=== PATIENT | male | born 1945 | race Caucasian/White ===

== ENCOUNTER 2016-11-07 07:47 | Emergency (ER) | payer BC, MEDICARE ==
[~2016-11-07] VITALS: Ht 152.4 cm; Wt 91.0 kg
[~2016-11-07 07:47] MED LIST: ASPI-664 PO; LEVO750T25 PO; LOSA25TA2 PO; METO-429 PO; NICO1PAT6 TRANSDERM; SIMV40TA2 PO
[2016-11-07 07:51] VITALS: Ht 152.4 cm; Wt 91.0 kg
[2016-11-07] MEDS ORDERED: KETOROLAC 30 MG INJ IV STA (08:10)
[2016-11-07] MEDS ORDERED: KETOROLAC 30 MG INJ IM STA (08:18)
--- NOTE | 2016-11-07 08:18 | ERD ---
ER Documentation Chief Complaint Date/Time DATE: 11/07/16 TIME: 08:12 Chief Complaint SORE THROAAT X 1 WEEK HPI 70-year-old male with a history of hypertension and hyperlipidemia presents to the emergency department with a history of neck stiffness and pain which radiates to his right upper back and right subscapular area. Patient states the pain began after waking up 2 days ago. He states that since that time he has been experiencing an intermittent 6 out of 10 type pain localized to the right neck and right upper back region. Patient denies any recent trauma but states that he has been having difficulty sleeping. Patient denies cough, fever , chest pain, shortness of breath, or recent illness. He also denies any recent travel, history of cancer, calf swelling or erythema. Patient states at this time he has a limited range of motion of his neck. ROS All systems reviewed and are negative except as per history of present illness. Medications Home Meds Active Scripts Naproxen* (Naprosyn*) 500 Mg Tablet, 500 MG PO BID for 10 Days, TAB Prov:CLIF DUFFY PA-C 11/07/16 Cyclobenzaprine Hcl* (Cyclobenzaprine Hcl*) 10 Mg Tablet, 10 MG PO Q8 Y for PAIN , #20 TAB Prov:CLIF DUFFY PA-C 11/07/16 Hydrocodone/Acetaminophen ([place] 10-325 Tablet) 1 Each Tablet, 1 EACH PO Q6, # 20 TAB Prov:CLIF DUFFY PA-C 11/07/16 Nicotine* (Nicotine* Patch) 21 mg/day Patch, 1 PATCH TRANSDERM DAILY for 30 Days , 3 Refills Prov:HORACIO MELGAR 09/16/16 Metoprolol Tartrate* (Lopressor*) 50 Mg Tab, 50 MG PO BID for 30 Days, TAB 3 Refills Prov:HORACIO MELGAR 09/16/16 Losartan Potassium* (Cozaar*) 25 Mg Tablet, 25 MG PO DAILY for 30 Days, TAB 3 Refills Prov:HORACIO MELGAR 09/16/16 Levofloxacin* (Levaquin*) 750 Mg Tablet, 750 MG PO DAILY for 4 Days, TAB Prov:HORACIO MELGAR 09/16/16 Reported Medications Simvastatin* (Zocor*) 40 Mg Tablet, 40 MG PO QHS, #30 TAB 09/11/16 Aspirin (Low Dose Aspirin) 81 Mg Tablet.dr, 81 MG PO DAILY, #30 TAB 09/11/16 Allergies Allergies: Coded Allergies: No Known Allergy (Unverified , 09/10/16) PMhx/Soc History of Surgery: No Anesthesia Reaction: No Hx Neurological Disorder: No Hx Respiratory Disorders: No Hx Cardiac Disorders: Yes (Stents 2 years ago) Hx Psychiatric Problems: No Hx Miscellaneous Medical Probl: No Hx Alcohol Use: No Hx Substance Use: No Hx Tobacco Use: Yes (1 PACK/DAY ) Smoking Status: Current every day smoker Physical Exam Vitals Vital Signs Date Time Temp Pulse Resp B/P Pulse Ox O2 Delivery O2 Flow Rate FiO2 11/07/16 07:51 98.0 74 18 150/58 98 Physical Exam Const: Well-developed, nontoxic-appearing, well-hydrated, in no acute distress Head: Atraumatic Eyes: Normal Conjunctiva ENT: Normal External Ears, Nose and Mouth. Oropharynx clear, non- erythematous, no sign of tonsillar swelling or exudate Neck: Limited range of motion on rotation of neck side to side. Limited range of motion on flexion and extension of neck. Tense cervical paraspinous muscles palpated along the right side. Mild tenderness to palpation near right subscapular region. No meningismus. Resp: Clear to auscultation bilaterally, no wheezes, rhonchi, rales Cardio: Regular rate and rhythm, no murmurs Abd: Soft, non tender, non distended. Normal bowel sounds Skin: No petechiae or rashes Back: No midline or flank tenderness Ext: No cyanosis, or edema. No tenderness to palpation of the right sided shoulder joint. Full range of motion Neur: Awake and alert Psych: Normal Mood and Affect Results 24 hrs Current Medications Medications (Trade) Dose Ordered Sig/Kadi Route PRN Reason Start Time Stop Time Status Last Admin Dose Admin Ketorolac Tromethamine (Toradol) 30 mg ONCE STAT IV 11/07/16 08:10 11/07/16 08:19 DC Ketorolac Tromethamine (Toradol) 30 mg ONCE STAT IM 11/07/16 08:18 11/07/16 08:19 DC 11/07/16 08:32 Procedures/MDM PROCEDURE: Chest radiograph series. CLINICAL INDICATION: Chest pain. Subscapular pain. TECHNIQUE: WILBUR and lateral chest x-ray. COMPARISON: Chest radiograph 09/14/2016 FINDINGS: Heart size is within normal limits. Atherosclerotic calcifications are present. The lungs and costophrenic angles are clear. There are mild degenerative changes of the thoracic spine. The bones are otherwise intact. IMPRESSION: 1. No evidence of acute cardiopulmonary disease. 2. Atherosclerotic vascular disease. RPTAT: KK .Rajesh Schuler MD, MD Date Time Electronically viewed and signed by .Rajesh Schuler MD, MD on 2016 08:46 .B/ CC: CLIF DUFFY PA-C Chest X-ray 1V Interpreted by me: Soft Tissue: No acute abnormalities, no PNA, PNX Bones: No acute abnormalities , degenerative changes of spine Mediastinum/Cardiac Silhouette/Lungs: Arthorsclerotic vascular disease, EKG: Rate/Rhythm: Normal Sinus Rhythm. possible left anterior fascicuar block QRS, ST, T-waves: No changes consistent w/ acute ischemia Impression: No evidence of ischemia or arrhythmia Patient received IM Toradol The patient's clinical presentation is very consistent with an acute viral syndrome. The patient does not exhibit any clinical signs or symptoms concerning for serious bacterial infection or systemic illness. Based on history and clinical exam findings the patient does not appear to have evidence of pneumonia, strep pharyngitis, urinary tract infection, bacteremia, sepsis, or meningitis. The patient's back pain is unlikely related to serious etiology. The patient exhibits no clinical signs or symptoms and has no history or risk factors to suggest cauda equina, cord compression, epidural abscess, epidural hematoma, acute aortic aneurysm or dissection. For these reasons I do not believe it is necessary to obtain laboratory testing or diagnostic imaging. I believe it would be appropriate for symptom control, and close outpatient primary care follow-up. Based on patient's history of present illness and physical examination the decision was made to discharge. The patient was re-evaluated after ED treatment and stabilizing measures, and symptoms have improved. There is no evidence of life threatening injuries or illnesses at this time. On re-examination, patient resting in no distress, stable vital signs, reports feeling better and safe for discharge with outpatient follow up with PMD in 1-2 days. Patient given return precautions. Departure Diagnosis: Primary Impression: Neck pain Additional Impressions: Neck stiffness Upper back pain on right side CLIF DUFFY PA-C Nov 07, 2016 08:18
--- NOTE | 2016-11-07 08:46 | RADRPT ---
PROCEDURE: Chest radiograph series. CLINICAL INDICATION: Chest pain. Subscapular pain. TECHNIQUE: PA and lateral chest x-ray. COMPARISON: Chest radiograph 09/14/2016 FINDINGS: Heart size is within normal limits. Atherosclerotic calcifications are present. The lungs and costo phrenic angles are clear. There are mild degenerative changes of the thoracic spine. The bones are otherwise intact. IMPRESSION: 1. No evidence of acute cardiopulmonary disease. 2. Atherosclerotic vascular disease. RPTAT: KK .Rajesh Schuler MD, MD Date Time Electronically viewed and signed by .Rajesh Schuler MD, on 11/07/2016 08:46 .B/
[2016-11-07] MEDS ORDERED: HYDR-902 PO (08:48)
[2016-11-07] MEDS ORDERED: NAPR-260 PO (08:48)
[2016-11-07] MEDS ORDERED: CYCL-319 PO (08:48)
== END 2016-11-07 09:05 | disposition home or self-care (01) ==
LOC: FTE 07:47
DX: M54.2 Cervicalgia (principal); M43.6 Torticollis; M54.9 Dorsalgia, unspecified; F17.210 Nicotine dependence, cigarettes, uncomplicated; Z79.82 Long term (current) use of aspirin; Z95.5 Presence of coronary angioplasty implant and graft
CPT/HCPCS: 71020; 93005; J1885; 96372